=== PATIENT | female | born 1955 | race Hispanic/Latino ===

== ENCOUNTER → 2018-10-26 | Outpatient (CLI) | payer OTHER ==
[~2018-10-26] MED LIST: MULTCAP11 PO; VITA-176 PO; VITATAB11 PO
--- NOTE | 2018-10-26 14:24 | REPMRS ---
Patient History The patient states she had a clinical breast exam in 09/29 Family history of breast cancer at age 50 or over in mother, unknown cancer in father. Benign excisional biopsy of the left breast, 1970. 3D TOMOSYNTHESIS WAS PERFORMED. Digital Woman Screen Mammo: October 26, 2018 - Exam #: [id number] Bilateral CC and MLO view(s) were taken. Technologist: Rose Upton, Technologist Prior study comparison: September 26, 2012, digital woman screen mammo performed at [facility]. September 06, 2011, bilateral bilat screen digital mammo performed at [facility]. FINDINGS: The breast tissue is heterogeneously dense. This may lower the sensitivity of mammography. There is a fairly symmetric fibroglandular pattern in both breasts. There has been no interval development of masses, areas of architectural distortion or clusters of microcalcifications typical of malignancy. No significant changes when compared with prior studies. Assessment: BI-RADS/ACR category 2 mammogram. Benign Findings. Recommendation Routine screening mammogram of both breasts in 1 year (for women over age 40). This mammogram was interpreted with the aid of an FDA-approved computer-aided dectection system. Electronically Signed By: Marc Sprague MD 10/26/18 0272
--- NOTE | 2018-10-30 15:19 | DEXA ---
AP SPINE L1 - L4 0.735 -3.7 -2.5 LT FEMUR TOTAL 0.660 -2.8 -1.8 LT NECK 0.651 -2.8 -1.5 RT FEMUR TOTAL 0.742 -2.1 -1.1 RT NECK 0.693 -2.5 -1.2 TOTAL BODY TOTAL OTHER COMMENTS: There is osteoporosis of the spine. There is osteoporosis of the left hip. There is osteoporosis of the right hip. The density of the spine has decreased 12.6% since 09/26/2012. The density of the left hip has decreased 8.5% since 09/26/2012. The density of the right hip has decreased 4.6% since 09/26/2012. The decreased density of the spine does represent a significant change since 09/26/2012. The decreased density of the left hip does represent a significant change since 09/26/2012. The decreased density of the right hip does represent a significant change. FOLLOW-UP: Recommendation for the next bone density exam: 2 years. LOPEZ
== END ==
LOC: M WHC 12:39
PROVIDERS: ATTEND Nurse Practitioner Family
DX: Z12.31 Encounter for screening mammogram for malignant neoplasm of breast (principal); M85.80 Other specified disorders of bone density and structure, unspecified site; Z78.0 Asymptomatic menopausal state; D64.9 Anemia, unspecified; Z86.018 Personal history of other benign neoplasm

== ENCOUNTER 2018-11-05 06:34 | Day surgery (SDC) | payer OTHER ==
[~2018-11-05] VITALS: Ht 152.4 cm; Wt 58.5 kg
[2018-11-05] MEDS ORDERED: NS 1,000 ML IV ONE (07:00)
[2018-11-05] MEDS ORDERED: PROPOFOL 200 MG/20 ML VIAL As Ordered ONE ×2 (07:11→07:50)
[2018-11-05] MEDS ORDERED: LIDOCAINE 2% INJ 100 MG/5 ML SDV (FOR ANES.) As Ordered ONE (07:11)
--- NOTE | 2018-11-05 08:12 | ROOR ---
Patient Name: Rose Camargo Procedure Date: 11/05/2018 7:34 AM Date of : 1955 Age: 62 Room: [facility] Gender: Female Note Status: Finalized Procedure: Total Colonoscopy to Cecum Indications: Screening for colorectal malignant neoplasm Providers: Aditya Hodge MD Referring MD: ENOC RUIZ NP Requesting Provider: Medicines: Monitored Anesthesia Care Complications: No immediate complications. Procedure: Pre-Anesthesia Assessment: - The heart rate, respiratory rate, oxygen saturations, blood pressure, adequacy of pulmonary ventilation, and response to care were monitored throughout the procedure. The Colonoscope was introduced through the anus and advanced to the cecum, identified by appendiceal orifice and ileocecal valve. The colonoscopy was performed without difficulty. The patient tolerated the procedure well. The quality of the bowel preparation was excellent. Findings: The perianal and digital rectal examinations were normal. Non-bleeding internal hemorrhoids were found during retroflexion. The hemorrhoids were Grade I (internal hemorrhoids that do not prolapse). No other significant abnormalities were identified in a careful examination of the remainder of the colon. The exam was otherwise without abnormality on direct and retroflexion views. There was a small lipoma, in the proximal ascending colon. Impression: - Non-bleeding internal hemorrhoids. - The examination was otherwise normal on direct and retroflexion views. - Small lipoma in the proximal ascending colon. - No specimens collected. - The exam was otherwise normal to the cecum. Recommendation: - Patient has a contact number available for emergencies. The signs and symptoms of potential delayed complications were discussed with the patient. Return to normal activities tomorrow. Written discharge instructions were provided to the patient. - High fiber diet. - Discharge patient to home. - Continue present medications. - Repeat colonoscopy in 10 years for screening purposes. - Return to referring physician. - The findings and recommendations were discussed with the patient's family. Aditya Hodge MD Aditya Hodge MD 11/05/2018 8:11:40 AM This report has been signed electronically. Number of Addenda: 0 Note Initiated On: 11/05/2018 7:34 AM Estimated Blood Loss: Estimated blood loss: none.
[2018-11-05 08:43] VITALS: BP 120/77
== END 2018-11-05 08:52 | disposition home or self-care (01) ==
LOC: M OPP 06:34
PROVIDERS: ATTEND Internal Medicine Gastroenterology
DX: Z12.11 Encounter for screening for malignant neoplasm of colon (principal); K64.0 First degree hemorrhoids; D17.5 Benign lipomatous neoplasm of intra-abdominal organs; Z88.1 Allergy status to other antibiotic agents; Z88.2 Allergy status to sulfonamides; Z88.8 Allergy status to other drugs, medicaments and biological substances; Z91.030 Bee allergy status

== ENCOUNTER → 2019-11-04 | Outpatient (CLI) | payer OTHER ==
--- NOTE | 2019-11-04 09:23 | REP ---
BILATERAL SCREENING DIGITAL MAMMOGRAM WITH 3D TOMOSYNTHESIS: There are no palpable abnormalities or other breast complaints. The the patient states she had a clinical breast examination September,. The [facility] Lifetime Breast Cancer Risk Score is: The 14.7%. Comparison is 09/26/2012. The The breasts are heterogeneously dense, which could obscure small masses. There is no dominant mass, micro calcific cluster or architectural distortion that would indicate malignancy. There are no additional findings on 3D tomosynthesiss. There is no change from the prior study. Impression: BIRADS/ACR category 1 mammogram. Negative. Recommendation: Routine annual screening mammography. Because of the increased breast density, annual adjunctive breast MRI in addition to screening mammography is recommended. These can be performed at alternating six month intervals. This mammogram was interpreted with the aid of a FDA approved computer-aided detection system. A. Negative mammogram reports should not delay biopsy if a dominant or clinically suspicious mass is present. B. Not all breast cancers are identified by mammography or tomosynthesis. C. Adenosis and dense breasts may obscure an underlying neoplasm. Patient letter M1 dense breasts. Electronically Signed by Marc Jaramillo MD 11/04/2019 09:14 A
== END ==
LOC: M WHC 08:20
PROVIDERS: ATTEND Nurse Practitioner Family
DX: Z12.31 Encounter for screening mammogram for malignant neoplasm of breast (principal)

== ENCOUNTER → 2020-11-13 | Outpatient (CLI) | payer OTHER ==
--- NOTE | 2020-11-13 09:32 | REPMRS ---
Patient History The patient states she had a clinical breast exam in 10/2020. Patient is postmenopausal. Family history of breast cancer at age 50 or over in mother, colorectal cancer at age 58 in brother. Benign excisional biopsy of the left breast, 1970. No Hormone Replacement Therapy 3D TOMOSYNTHESIS WAS PERFORMED. The [facility] lifetime risk for breast cancer is 14.2%. Volpara breast density c. Digital Woman Screen Mammo: November 13, 2020 - Exam #: [id number] Bilateral CC and MLO view(s) were taken. Technologist: Nieves Pickett, Technologist Prior study comparison: November 04, 2019, bilateral digital woman screen mammo performed at [facility]. October 26, 2018, bilateral digital woman screen mammo performed at [facility]. FINDINGS: The breast tissue is heterogeneously dense. This may lower the sensitivity of mammography. There has been no change in the appearance of the mammogram from the prior studies. There is a moderate amount of residual fibroglandular tissue which is fairly symmetric. There is no interval development of dominant mass, areas of architectural distortion, or clustered microcalcification typical of malignancy. Assessment: BI-RADS/ACR category 1 mammogram. Negative Mammogram. Recommendation Routine screening mammogram in 1 year (for women over age 40). This mammogram was interpreted with the aid of an FDA-approved computer-aided dectection system. Electronically Signed By: Marc Sprague MD 11/13/20 0931
--- NOTE | 2020-11-13 10:45 | DEXAMM ---
INDICATION: M81.0 AGE RELATED OSTEOPOROSIS. COMPARISON: 10/26/2018, 09/26/2012. TECHNIQUE: Bone density was measured using dual-energy x-ray absorptiometry (DEXA). FINDINGS: AP SPINE L1-L4 BMD 0.679 g/cm2 Young Adult T-Score -4.2 Age Matched Z-Score -2.7. LT FEMUR, TOTAL BMD 0.672 g/cm2 Young Adult T-Score -2.7 Age Matched Z-Score -1.6. LT NECK BMD 0.654 g/cm2 Young Adult T-Score -2.8 Age Matched Z-Score -1.4. RT FEMUR, TOTAL BMD 0.743 g/cm2 Young Adult T-Score -2.1 Age Matched Z-Score -1.0. RT NECK BMD 0.694 g/cm2 Young Adult T-Score -2.5 Age Matched Z-Score -1.1. IMPRESSION: There is osteoporosis of the spine. There is osteoporosis of the left hip. There is low bone density of the right hip. The density of the spine has decreased 19.3% since the initial exam on 09/26/2012. The density of the spine decreased 7.6% since most recent exam on 10/26/2018. The density of the left hip has decreased 6.8% since initial exam on 09/26/2012. The density of the left hip has increased 1.8% since most recent exam on 10/26/2018. The density of the right hip has decreased 4.5% since the initial exam on 09/26/2012. The density of the right hip has increased 0.1% since the most recent exam on 10/26/2018. FOLLOW-UP: Recommendation for the next bone density exam: 2 years. <Electronically signed by Marc Sprague > 11/13/20 1044
== END ==
LOC: M WHC 07:57
PROVIDERS: ATTEND Registered Nurse
DX: Z12.31 Encounter for screening mammogram for malignant neoplasm of breast (principal); M85.9 Disorder of bone density and structure, unspecified; M81.0 Age-related osteoporosis without current pathological fracture; Z78.0 Asymptomatic menopausal state; Z80.3 Family history of malignant neoplasm of breast

== ENCOUNTER → 2021-11-01 | Outpatient (REF) | payer OTHER | LOC: M LAB REF 16:14 | PROVIDERS: ATTEND Registered Nurse | DX: R10.12 Left upper quadrant pain (principal) ==

== ENCOUNTER → 2021-11-10 | Outpatient (CLI) | payer OTHER ==
[~2021-11-10] MED LIST changes: +GASTROGRAFIN SOLUTION 30ML (Q9963) As Ordered ONE; +ISOVUE-370 76% 100ML VIAL As Ordered ONE
== END ==
LOC: M RAD 11:30
PROVIDERS: ATTEND Registered Nurse
DX: N20.0 Calculus of kidney (principal); K59.00 Constipation, unspecified

== ENCOUNTER → 2021-12-21 | Outpatient (CLI) | payer OTHER ==
[~2021-12-21] MED LIST changes: -GASTROGRAFIN SOLUTION 30ML (Q9963) As Ordered ONE; -ISOVUE-370 76% 100ML VIAL As Ordered ONE
== END ==
LOC: M WHC 07:45
PROVIDERS: ATTEND Registered Nurse
DX: Z12.31 Encounter for screening mammogram for malignant neoplasm of breast (principal)

== ENCOUNTER → 2023-02-15 | Outpatient (REF) | payer MEDICARE, OTHER | LOC: M LAB REF 16:16 | PROVIDERS: ATTEND Nurse Practitioner Family | DX: S30.860A Insect bite (nonvenomous) of lower back and pelvis, initial encounter (principal); W18.30XA Fall on same level, unspecified, initial encounter; Y92.009 Unspecified place in unspecified non-institutional (private) residence as the place of occurrence of the external cause ==

== ENCOUNTER → 2023-12-29 | Outpatient (CLI) | payer MEDICARE, OTHER | LOC: M RAD 11:54 | PROVIDERS: ATTEND Nurse Practitioner Family | DX: R10.11 Right upper quadrant pain (principal) ==

== ENCOUNTER → 2024-04-08 | Outpatient (CLI) | payer MEDICARE, OTHER ==
[~2024-04-08] MED LIST changes: +GASTROGRAFIN SOLUTION 30ML ONE; +ISOVUE-370 76% 100ML VIAL ONE
== END ==
LOC: M PLAIMG 12:00
PROVIDERS: ATTEND Nurse Practitioner Family
DX: R10.9 Unspecified abdominal pain (principal)
CPT/HCPCS: 74177; Q9963; Q9967

== ENCOUNTER → 2024-04-18 | Outpatient (CLI) | payer MEDICARE, OTHER ==
[~2024-04-18] MED LIST changes: -GASTROGRAFIN SOLUTION 30ML ONE; -ISOVUE-370 76% 100ML VIAL ONE; +PROHANCE 279.3MG/ML 5ML VIAL ONE
== END ==
LOC: M PLAIMG 07:56
PROVIDERS: ATTEND Nurse Practitioner Family
DX: D48.7 Neoplasm of uncertain behavior of other specified sites (principal); K80.20 Calculus of gallbladder without cholecystitis without obstruction; K86.2 Cyst of pancreas; N28.1 Cyst of kidney, acquired; K76.89 Other specified diseases of liver
CPT/HCPCS: 74183; A9576

== ENCOUNTER → 2024-07-03 | Outpatient (REF) | payer MEDICARE, OTHER ==
[~2024-07-03] MED LIST changes: -PROHANCE 279.3MG/ML 5ML VIAL ONE
== END ==
LOC: M LAB REF 17:31
PROVIDERS: ATTEND Nurse Practitioner Family
DX: R10.9 Unspecified abdominal pain (principal)